=== PATIENT | male | born 1975 | race Caucasian/White ===

== ENCOUNTER 2018-02-12 17:05 | Emergency (ER) | payer SELFPAY ==
[~2018-02-12] VITALS: Wt 81.6 kg
[~2018-02-12 17:05] MED LIST: FLEXERIL10 MG PO; MOTRIN800 MG PO
[2018-02-12] MEDS ORDERED: NORCO 5-325 TA1 EACH PO (19:24)
== END 2018-02-12 19:31 | disposition home or self-care (01) ==
LOC: ED 17:05
DX: S92.321A Displaced fracture of second metatarsal bone, right foot, initial encounter for closed fracture (principal); S92.331A Displaced fracture of third metatarsal bone, right foot, initial encounter for closed fracture; S92.521A Displaced fracture of middle phalanx of right lesser toe(s), initial encounter for closed fracture; F17.200 Nicotine dependence, unspecified, uncomplicated; W22.03XA Walked into furniture, initial encounter; Y93.89 Activity, other specified; Y92.89 Other specified places as the place of occurrence of the external cause; Y99.9 Unspecified external cause status